=== PATIENT | female | born 1980 | race Caucasian/White ===

== ENCOUNTER 2023-07-24 21:17 | Inpatient (IN) | payer MEDICARE, MEDICAID, SELFPAY ==
[2023-07-24 21:45] VITALS: BP 121/77; PULSE 78; RESP 16; TEMP 36.8; O2SAT 98
[2023-07-24 23:35] VITALS: BMI 21.5
--- NOTE | 2023-07-25 02:12 | PC.ADMIT ---
TIFFANY IS A BIOLOGICALLY BORN MALE WHO IS TRANSITIONING TO FEMALE. SHE ARRIVED ON THE UNIT AT 2140 VIA STRETCHER. SKIN CHECK/BODY ASSESSMENT COMPLETED WITH 2 FEMALE STAFF PER HER CHOICE. TIFFANY IS 42 YEARS OLD, TRANSFEM. ADMITTED ON A CV TO [facility] FOR SAFETY, AND STABILIZATION R/T HOMELESSNESS, AND DEPRESSION WITH SI. MEDICAL DIAGNOSIS INCLUDE HTN, ASD AND CHRONIC BP. PSYCHIATRIC HISTORY INCLUDES DEPRESSION, ANXIETY, SUBSTANCE USE DISORDER, SIB, AND ANXIETY WITH MOST RECENT HOSPITALIZATION IN MAY 2023. RESPIRATORY PANEL NEGATIVE, TOX. SCREEN POSITIVE COCAINE, BENZO'S, FENTANYL, AMPHETAMINES AND SUBOXONE. SHE WAS COOPERATIVE WITH ADMISSION PROCESS, VSS, A/O X 3, GAIT STEADY, INDEPENDENT WITH ADL'S, POOR EYE CONTACT, SOFT SPOKEN, SKIN INTEGRITY INTACT EXCEPT FOR SUPERFICIAL SELF INFLICTED SCRATCHES TO LEFT WRIST, DENIES SI/HI/AVH. TIFFANY WAS ORIENTED TO UNIT/ROOM, PROVIDED SNACKS/FLUID. UNIT SAFETY OBSERVATION EVERY 15 MIN.
[2023-07-25 07:35] VITALS: BP 131/87; PULSE 72; RESP 16; TEMP 36.7; O2SAT 100
[2023-07-25 08:56] LABS: Estimated Average Glucose 74 mg/dL; Hemoglobin A1c % 4.2 % (<6.0)
[2023-07-25 09:07] LABS: Cholesterol 134 mg/dL (<200); HDL Cholesterol 36 mg/dL (>40); LDL Cholesterol Calculated 71 mg/dL (<100); Triglycerides 138 mg/dL (<150)
[2023-07-25 09:23] LABS: Free T4 (Free Thyroxine) 0.98 ng/dL (0.71-1.85); Thyroid Stimulating Hormone 1.18 uIU/mL (0.32-4.0)
[2023-07-25 09:34] LABS: Folate 11.8 ng/mL (> or = 4.0); Vitamin B12 1174 pg/mL (200-900)
[2023-07-25] MEDS: Buprenorphine/Naloxone 8/2 mg FILM 1 FILM SUBLINGUAL ×2 (11:45→14:18)
[2023-07-25] MEDS: Amphetamine Mixed Salts 10 MG TABLET 15 MG PO (14:18)
[2023-07-25] MEDS: busPIRone HCl 5 MG TABLET PO ×2 (14:18→20:50)
[2023-07-25] MEDS: FLUoxetine HCl 20 MG CAPSULE PO (14:19)
[2023-07-25] MEDS: Omeprazole 20 MG CAPSULE.DR PO (14:19)
[2023-07-25] MEDS: lisinopriL 10 MG TABLET PO (14:19)
[2023-07-25 14:20] VITALS: BP 135/95; PULSE 76; RESP 18
[2023-07-25] MEDS: Nicotine 21 MG PATCH.TD24 TRANSDERMA (15:21)
[2023-07-25] MEDS: clonazePAM 1 MG TABLET PO ×2 (15:47→20:24)
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
[2023-07-25] MEDS: hydrOXYzine HCL 25 MG TABLET PO (19:02)
[2023-07-25 19:26] VITALS: BP 141/87; PULSE 94; RESP 16; TEMP 36.5; O2SAT 98
[2023-07-25] MEDS: Benztropine Mesylate 0.5 MG TABLET PO (20:50)
[2023-07-25] MEDS: traZODone HCL 50 MG TABLET PO (20:51)
[2023-07-25] MEDS: risperiDONE 1 MG TABLET PO (20:51)
[2023-07-25] MEDS: QUEtiapine Fumarate 100 MG TABLET PO (20:51)
[2023-07-26 08:25] VITALS: BP 108/74; PULSE 81; RESP 14; TEMP 36.4; O2SAT 100
[2023-07-26 08:55] VITALS: BP 108/74
[2023-07-26] MEDS: Dextroamphetamine/Amphetamine XR 10 MG CAP.ER.24H PO (08:55)
[2023-07-26] MEDS: lisinopriL 10 MG TABLET PO (08:55)
[2023-07-26] MEDS: busPIRone HCl 5 MG TABLET PO ×3 (08:56→20:46)
[2023-07-26] MEDS: Omeprazole 20 MG CAPSULE.DR PO (08:56)
[2023-07-26] MEDS: Dextroamphetamine/Amphetamine XR 10 MG CAP.ER.24H 20 MG PO (08:56)
[2023-07-26] MEDS: risperiDONE 1 MG TABLET PO ×2 (08:57→20:46)
[2023-07-26] MEDS: FLUoxetine HCl 20 MG CAPSULE PO (08:57)
[2023-07-26] MEDS: Nicotine 21 MG PATCH.TD24 TRANSDERMA (08:57)
[2023-07-26] MEDS: Buprenorphine/Naloxone 8/2 mg FILM 1 FILM SUBLINGUAL ×2 (09:16→13:42)
[2023-07-26] MEDS: clonazePAM 1 MG TABLET PO ×3 (10:21→20:46)
[2023-07-26] MEDS: hydrOXYzine HCL 25 MG TABLET PO (12:30)
[2023-07-26] MEDS: Amphetamine Mixed Salts 10 MG TABLET 15 MG PO (13:41)
[2023-07-26 19:47] VITALS: BP 137/84; PULSE 86; RESP 16; TEMP 36.8; O2SAT 98
[2023-07-26] MEDS: traZODone HCL 50 MG TABLET PO (20:46)
[2023-07-26] MEDS: Benztropine Mesylate 0.5 MG TABLET PO (20:46)
[2023-07-26] MEDS: QUEtiapine Fumarate 100 MG TABLET PO (20:46)
--- NOTE | 2023-07-26 21:03 | HO.PSYCHPN ---
Subjective Subjective Date of Service: 07/26/23 Reason For Visit: Abraham Depressive Disorder Interim History: Patient reports she is feeling depressed and anxious. No side effects reported with her medications. Slept well. Denies SI. Review of Systems Review of Systems General: No fevers, malaise, unintentional weight loss HEENT: No blurred vision, diplopia. No sore throat, nasal congestion, rhinorrhea, sinus pain, ear pain Cardiovascular: No chest pain, palpitations, or leg edema Respiratory: No shortness of breath, wheezing, cough GI: No abdominal pain, nausea, vomiting, diarrhea, constipation, melena, hematochezia : No dysuria, hematuria, increased urinary frequency, decreased urinary output MSK: No myalgia, back pain Neuro: No headaches, weakness, paresthesias Skin: No rashes or lesions Mental Status Exam Mental Status Exam Narrative: disheveled, malkempt, poor dentition. cooperative. no PMA/PMR. speech nml rater, amount, latency. soft. thoughts linear and logical without evidence of delusions or paranoia. affect full range, normo-intense, non-labile. mood OK. a lot of anxiety. denies SI/SIBI/HI/AVH. Diagnostics Vital Signs (24Hr): Vital Signs - 24 hr 07/26/23 08:25 07/26/23 08:55 07/26/23 19:47 Temperature 97.5 F 98.2 F Pulse Rate 81 86 Respiratory Rate 14 16 Blood Pressure 108/74 108/74 137/84 Pulse Oximetry 100 98 Oxygen Delivery Method Room Air Room Air BMI result Body Mass Index 21.5 Labs Labs: Laboratory Results - last 48 hr 07/25/23 08:23 Estimat Average Glucose 74 Hemoglobin A1c % 4.2 Triglycerides 138 Cholesterol 134 LDL Cholesterol, Calc 71 HDL Cholesterol 36 L Vitamin B12 1174 H Folate 11.8 TSH 1.18 Free T4 0.98 Medications Medications Current Medications Acetaminophen (Acetaminophen 325 Mg Tablet) 650 mg PO Q6H PRN PRN Reason: Headache/Pain Mild Scale (1-3) Al Hydroxide/Mg Hydroxide (Magnesium Hydrox/Alum Hydrox 30 Ml Oral.Susp) 30 ml PO Q6H PRN PRN Reason: Heartburn/Nausea Amphetamine/Dextroamphetamine (Dextroamphetamine/Amphetamine Xr 10 Mg Cap.Er.24h) 20 mg PO DAILY [facility] Last Admin: 07/26/23 08:56 Dose: 20 mg Amphetamine/Dextroamphetamine (Dextroamphetamine/Amphetamine Xr 10 Mg Cap.Er.24h) 10 mg PO DAILY [facility] Last Admin: 07/26/23 08:55 Dose: 10 mg Amphetamine/Dextroamphetamine (Amphetamine Mixed Salts 10 Mg Tablet) 15 mg PO DAILY@1400 [facility] Last Admin: 07/26/23 13:41 Dose: 15 mg Benztropine Mesylate (Benztropine Mesylate 0.5 Mg Tablet) 0.5 mg PO BEDTIME [facility] Last Admin: 07/26/23 20:46 Dose: 0.5 mg Buprenorphine/Naloxone (Buprenorphine/Naloxone 8/2 Mg Film) 1 film SUBLINGUAL BID@0800,1400 [facility] Last Admin: 07/26/23 13:42 Dose: 1 film Buspirone HCl (Buspirone Hcl 5 Mg Tablet) 5 mg PO TID [facility] Last Admin: 07/26/23 20:46 Dose: 5 mg Clonazepam (Clonazepam 1 Mg Tablet) 1 mg PO TID PRN PRN Reason: anxiety Last Admin: 07/26/23 20:46 Dose: 1 mg Docusate Sodium (Docusate Sodium 100 Mg Capsule) 100 mg PO BID PRN PRN Reason: constipation Fluoxetine HCl (Fluoxetine Hcl 20 Mg Capsule) 20 mg PO DAILY [facility] Last Admin: 07/26/23 08:57 Dose: 20 mg Hydroxyzine HCl (Hydroxyzine Hcl 25 Mg Tablet) 25 mg PO Q6H PRN PRN Reason: Anxiety Last Admin: 07/26/23 12:30 Dose: 25 mg Lisinopril (Lisinopril 10 Mg Tablet) 10 mg PO DAILY [facility]; Protocol Last Admin: 07/26/23 08:55 Dose: 10 mg Magnesium Hydroxide (Milk Of Magnesia 30 Ml Oral.Susp) 30 ml PO DAILY PRN PRN Reason: Constipation Nicotine (Nicotine 21 Mg Patch.Td24) 21 mg TRANSDERMA DAILY [facility] Last Admin: 07/26/23 08:57 Dose: 21 mg Nicotine Polacrilex (Nicotine Polacrilex 2 Mg Gum) 4 mg BUCCAL Q2H PRN PRN Reason: Nicotine Cravings Omeprazole (Omeprazole 20 Mg Capsule.Dr) 20 mg PO DAILY@0630 [facility] Last Admin: 07/26/23 08:56 Dose: 20 mg Quetiapine Fumarate (Quetiapine Fumarate 100 Mg Tablet) 100 mg PO BEDTIME [facility] Last Admin: 07/26/23 20:46 Dose: 100 mg Risperidone (Risperidone 1 Mg Tablet) 1 mg PO BID [facility] Last Admin: 07/26/23 20:46 Dose: 1 mg Trazodone HCl (Trazodone Hcl 50 Mg Tablet) 50 mg PO BEDTIME MRX1 PRN PRN Reason: Insomnia Last Admin: 07/26/23 20:46 Dose: 50 mg Allergies Allergies Allergy/AdvReac Type Severity Reaction Status Date / Time Unable to Assess Allergy Verified 07/24/23 21:56 Assessment & Plan Assessment & Plan (1) Autism: Status: Acute Code(s): F84.0 - Autistic disorder (2) Homeless single person: Status: Acute Code(s): Z59.00 - Homelessness unspecified (3) Opioid use disorder: Status: Acute Code(s): F11.90 - Opioid use, unspecified, uncomplicated (4) Cocaine use disorder: Status: Acute Code(s): F14.10 - Cocaine abuse, uncomplicated (5) Nicotine use disorder: Status: Acute Code(s): F17.200 - Nicotine dependence, unspecified, uncomplicated (6) Chronic post-traumatic stress disorder (PTSD): Status: Acute Code(s): F43.12 - Post-traumatic stress disorder, chronic Plan meds verified with pharmacy. continue previous medications regimen. stabilize inpatient, detox from cocaine, refer to outpt treaters for aftercare and support with housing and SSDI. 07/25: continue current management and treatment plan. Reason for continued inpatient stay Substantial Risk for: harm to self and rapid decompensation Time Spent With Patient Time: Total time managing care of this patient today ____ minutes.
[2023-07-27 08:10] VITALS: BP 125/91; PULSE 93; RESP 16; TEMP 36.7; O2SAT 97
[2023-07-27] MEDS: Nicotine 21 MG PATCH.TD24 TRANSDERMA (08:51)
[2023-07-27] MEDS: Omeprazole 20 MG CAPSULE.DR PO (08:52)
[2023-07-27 08:53] VITALS: BP 125/91
[2023-07-27] MEDS: lisinopriL 10 MG TABLET PO (08:53)
[2023-07-27] MEDS: FLUoxetine HCl 20 MG CAPSULE PO (08:53)
[2023-07-27] MEDS: Dextroamphetamine/Amphetamine XR 10 MG CAP.ER.24H 20 MG PO (08:53)
[2023-07-27] MEDS: busPIRone HCl 5 MG TABLET PO ×3 (08:55→20:21)
[2023-07-27] MEDS: Dextroamphetamine/Amphetamine XR 10 MG CAP.ER.24H PO (08:57)
[2023-07-27] MEDS: Buprenorphine/Naloxone 8/2 mg FILM 1 FILM SUBLINGUAL ×2 (08:58→14:04)
[2023-07-27] MEDS: risperiDONE 1 MG TABLET PO ×2 (09:09→20:21)
[2023-07-27] MEDS: clonazePAM 1 MG TABLET PO ×3 (09:14→18:28)
--- NOTE | 2023-07-27 09:24 | P.PNPSI_ITS ---
Subjective Subjective Date of Service: 07/27/23 Reason For Visit: Abraham Depressive Disorder Interim History: Patient reports she is feeling a little better. No side effects reported with her medications. Slept well. Denies SI. Review of Systems Review of Systems General: No fevers, malaise, unintentional weight loss HEENT: No blurred vision, diplopia. No sore throat, nasal congestion, rhinorrhea, sinus pain, ear pain Cardiovascular: No chest pain, palpitations, or leg edema Respiratory: No shortness of breath, wheezing, cough GI: No abdominal pain, nausea, vomiting, diarrhea, constipation, melena, hematochezia : No dysuria, hematuria, increased urinary frequency, decreased urinary output MSK: No myalgia, back pain Neuro: No headaches, weakness, paresthesias Skin: No rashes or lesions Mental Status Exam Mental Status Exam Narrative: disheveled, malkempt, poor dentition. cooperative. no PMA/PMR. speech nml rater, amount, latency. soft. thoughts linear and logical without evidence of delusions or paranoia. affect full range, normo-intense, non-labile. mood OK. a lot of anxiety. denies SI/SIBI/HI/AVH. Diagnostics Vital Signs (24Hr): Vital Signs - 24 hr 07/26/23 19:47 07/27/23 08:10 07/27/23 08:53 Temperature 98.2 F 98.0 F Pulse Rate 86 93 Respiratory Rate 16 16 Blood Pressure 137/84 125/91 H 125/91 H Pulse Oximetry 98 97 Oxygen Delivery Method Room Air Room Air BMI result Body Mass Index 21.5 Labs Labs: Laboratory Results - last 48 hr 07/25/23 08:23 Vitamin B12 1174 H Folate 11.8 TSH 1.18 Free T4 0.98 Medications Medications Current Medications Acetaminophen (Acetaminophen 325 Mg Tablet) 650 mg PO Q6H PRN PRN Reason: Headache/Pain Mild Scale (1-3) Al Hydroxide/Mg Hydroxide (Magnesium Hydrox/Alum Hydrox 30 Ml Oral.Susp) 30 ml PO Q6H PRN PRN Reason: Heartburn/Nausea Amphetamine/Dextroamphetamine (Amphetamine Mixed Salts 10 Mg Tablet) 15 mg PO DAILY@1400 [facility] Last Admin: 07/26/23 13:41 Dose: 15 mg Amphetamine/Dextroamphetamine (Dextroamphetamine/Amphetamine Xr 10 Mg Cap.Er.24h) 30 mg PO DAILY [facility] Last Admin: 07/27/23 09:11 Dose: Not Given Benztropine Mesylate (Benztropine Mesylate 0.5 Mg Tablet) 0.5 mg PO BEDTIME [facility] Last Admin: 07/26/23 20:46 Dose: 0.5 mg Buprenorphine/Naloxone (Buprenorphine/Naloxone 8/2 Mg Film) 1 film SUBLINGUAL BID@0800,1400 [facility] Last Admin: 07/27/23 08:58 Dose: 1 film Buspirone HCl (Buspirone Hcl 5 Mg Tablet) 5 mg PO TID [facility] Last Admin: 07/27/23 08:55 Dose: 5 mg Clonazepam (Clonazepam 1 Mg Tablet) 1 mg PO TID PRN PRN Reason: anxiety Last Admin: 07/27/23 09:14 Dose: 1 mg Docusate Sodium (Docusate Sodium 100 Mg Capsule) 100 mg PO BID PRN PRN Reason: constipation Fluoxetine HCl (Fluoxetine Hcl 20 Mg Capsule) 20 mg PO DAILY [facility] Last Admin: 07/27/23 08:53 Dose: 20 mg Hydroxyzine HCl (Hydroxyzine Hcl 25 Mg Tablet) 25 mg PO Q6H PRN PRN Reason: Anxiety Last Admin: 07/26/23 12:30 Dose: 25 mg Lisinopril (Lisinopril 10 Mg Tablet) 10 mg PO DAILY [facility]; Protocol Last Admin: 07/27/23 08:53 Dose: 10 mg Magnesium Hydroxide (Milk Of Magnesia 30 Ml Oral.Susp) 30 ml PO DAILY PRN PRN Reason: Constipation Nicotine (Nicotine 21 Mg Patch.Td24) 21 mg TRANSDERMA DAILY [facility] Last Admin: 07/27/23 08:51 Dose: 21 mg Nicotine Polacrilex (Nicotine Polacrilex 2 Mg Gum) 4 mg BUCCAL Q2H PRN PRN Reason: Nicotine Cravings Omeprazole (Omeprazole 20 Mg Capsule.Dr) 20 mg PO DAILY@0630 [facility] Last Admin: 07/27/23 08:52 Dose: 20 mg Quetiapine Fumarate (Quetiapine Fumarate 100 Mg Tablet) 100 mg PO BEDTIME [facility] Last Admin: 07/26/23 20:46 Dose: 100 mg Risperidone (Risperidone 1 Mg Tablet) 1 mg PO BID [facility] Last Admin: 07/27/23 09:09 Dose: 1 mg Trazodone HCl (Trazodone Hcl 50 Mg Tablet) 50 mg PO BEDTIME MRX1 PRN PRN Reason: Insomnia Last Admin: 07/26/23 20:46 Dose: 50 mg Allergies Allergies Allergy/AdvReac Type Severity Reaction Status Date / Time Unable to Assess Allergy Verified 07/24/23 21:56 Assessment & Plan Assessment & Plan (1) Autism: Status: Acute Code(s): F84.0 - Autistic disorder (2) Homeless single person: Status: Acute Code(s): Z59.00 - Homelessness unspecified (3) Opioid use disorder: Status: Acute Code(s): F11.90 - Opioid use, unspecified, uncomplicated (4) Cocaine use disorder: Status: Acute Code(s): F14.10 - Cocaine abuse, uncomplicated (5) Nicotine use disorder: Status: Acute Code(s): F17.200 - Nicotine dependence, unspecified, uncomplicated (6) Chronic post-traumatic stress disorder (PTSD): Status: Acute Code(s): F43.12 - Post-traumatic stress disorder, chronic Plan meds verified with pharmacy. continue previous medications regimen. stabilize inpatient, detox from cocaine, refer to outpt treaters for aftercare and support with housing and SSDI. 07/25: continue current management and treatment plan. 07/26: continue current management and treatment plan. Reason for continued inpatient stay Substantial Risk for: harm to self and rapid decompensation Time Spent With Patient Time: Total time managing care of this patient today ____ minutes.
[2023-07-27] MEDS: Amphetamine Mixed Salts 10 MG TABLET 15 MG PO (14:03)
[2023-07-27] MEDS: hydrOXYzine HCL 25 MG TABLET PO (17:08)
[2023-07-27 20:15] VITALS: BP 129/84; PULSE 91; RESP 16; TEMP 36.8; O2SAT 98
[2023-07-27] MEDS: QUEtiapine Fumarate 100 MG TABLET PO (20:21)
[2023-07-27] MEDS: Benztropine Mesylate 0.5 MG TABLET PO (20:21)
[2023-07-28 07:53] VITALS: BP 117/79; PULSE 84; RESP 16; TEMP 36.8; O2SAT 98
[2023-07-28 08:12] VITALS: BP 117/79
[2023-07-28] MEDS: FLUoxetine HCl 20 MG CAPSULE PO (08:12)
[2023-07-28] MEDS: lisinopriL 10 MG TABLET PO (08:12)
[2023-07-28] MEDS: Buprenorphine/Naloxone 8/2 mg FILM 1 FILM SUBLINGUAL ×2 (08:13→14:09)
[2023-07-28] MEDS: Nicotine 21 MG PATCH.TD24 TRANSDERMA (08:13)
[2023-07-28] MEDS: busPIRone HCl 5 MG TABLET PO ×3 (08:13→20:42)
[2023-07-28] MEDS: Dextroamphetamine/Amphetamine XR 10 MG CAP.ER.24H 30 MG PO (08:13)
[2023-07-28] MEDS: Omeprazole 20 MG CAPSULE.DR PO (08:13)
[2023-07-28] MEDS: risperiDONE 1 MG TABLET PO ×2 (08:31→20:41)
[2023-07-28] MEDS: clonazePAM 1 MG TABLET PO ×3 (09:53→20:41)
[2023-07-28] MEDS: hydrOXYzine HCL 25 MG TABLET PO (12:34)
[2023-07-28] MEDS: Amphetamine Mixed Salts 10 MG TABLET 15 MG PO (14:08)
--- NOTE | 2023-07-28 16:45 | P.PNPSI_ITS ---
Subjective Subjective Date of Service: 07/28/23 Reason For Visit: Abraham Depressive Disorder Interim History: calm, cooperative, pleasant. expressing interest in [facility] programs, encouraged to speak with [facility]. agrees to increase prozac to 40 mg daily. per staff, attending groups. safe, here, not if discharged. no issues over w/e. Mental Status Exam Mental Status Exam Narrative: disheveled, malkempt, poor dentition. cooperative. no PMA/PMR. speech nml rate, amount, latency. soft. thoughts linear and logical without evidence of delusions or paranoia. affect full range, normo-intense, non-labile. mood OK. endorses SI/SIBI that comes and goes, MRE 2 days ago. denies HI/AVH. Diagnostics Vital Signs (24Hr): Vital Signs - 24 hr 07/27/23 20:15 07/28/23 07:53 07/28/23 08:12 Temperature 98.2 F 98.2 F Pulse Rate 91 84 Respiratory Rate 16 16 Blood Pressure 129/84 117/79 117/79 Pulse Oximetry 98 98 Oxygen Delivery Method Room Air Room Air BMI result Body Mass Index 21.5 Medications Medications Current Medications Acetaminophen (Acetaminophen 325 Mg Tablet) 650 mg PO Q6H PRN PRN Reason: Headache/Pain Mild Scale (1-3) Al Hydroxide/Mg Hydroxide (Magnesium Hydrox/Alum Hydrox 30 Ml Oral.Susp) 30 ml PO Q6H PRN PRN Reason: Heartburn/Nausea Amphetamine/Dextroamphetamine (Amphetamine Mixed Salts 10 Mg Tablet) 15 mg PO DAILY@1400 [facility] Last Admin: 07/28/23 14:08 Dose: 15 mg Amphetamine/Dextroamphetamine (Dextroamphetamine/Amphetamine Xr 10 Mg Cap.Er.24h) 30 mg PO DAILY [facility] Last Admin: 07/28/23 08:13 Dose: 30 mg Benztropine Mesylate (Benztropine Mesylate 0.5 Mg Tablet) 0.5 mg PO BEDTIME [facility] Last Admin: 07/27/23 20:21 Dose: 0.5 mg Buprenorphine/Naloxone (Buprenorphine/Naloxone 8/2 Mg Film) 1 film SUBLINGUAL BID@0800,1400 [facility] Last Admin: 07/28/23 14:09 Dose: 1 film Buspirone HCl (Buspirone Hcl 5 Mg Tablet) 5 mg PO TID [facility] Last Admin: 07/28/23 15:08 Dose: 5 mg Clonazepam (Clonazepam 1 Mg Tablet) 1 mg PO TID PRN PRN Reason: anxiety Last Admin: 07/28/23 15:03 Dose: 1 mg Docusate Sodium (Docusate Sodium 100 Mg Capsule) 100 mg PO BID PRN PRN Reason: constipation Fluoxetine HCl (Fluoxetine Hcl 20 Mg Capsule) 40 mg PO DAILY [facility] Hydroxyzine HCl (Hydroxyzine Hcl 25 Mg Tablet) 25 mg PO Q6H PRN PRN Reason: Anxiety Last Admin: 07/28/23 12:34 Dose: 25 mg Lisinopril (Lisinopril 10 Mg Tablet) 10 mg PO DAILY [facility]; Protocol Last Admin: 07/28/23 08:12 Dose: 10 mg Magnesium Hydroxide (Milk Of Magnesia 30 Ml Oral.Susp) 30 ml PO DAILY PRN PRN Reason: Constipation Nicotine (Nicotine 21 Mg Patch.Td24) 21 mg TRANSDERMA DAILY [facility] Last Admin: 07/28/23 08:13 Dose: 21 mg Nicotine Polacrilex (Nicotine Polacrilex 2 Mg Gum) 4 mg BUCCAL Q2H PRN PRN Reason: Nicotine Cravings Omeprazole (Omeprazole 20 Mg Capsule.Dr) 20 mg PO DAILY@0630 [facility] Last Admin: 07/28/23 08:13 Dose: 20 mg Quetiapine Fumarate (Quetiapine Fumarate 100 Mg Tablet) 100 mg PO BEDTIME [facility] Last Admin: 07/27/23 20:21 Dose: 100 mg Risperidone (Risperidone 1 Mg Tablet) 1 mg PO BID [facility] Last Admin: 07/28/23 08:31 Dose: 1 mg Trazodone HCl (Trazodone Hcl 50 Mg Tablet) 50 mg PO BEDTIME MRX1 PRN PRN Reason: Insomnia Last Admin: 07/26/23 20:46 Dose: 50 mg Allergies Allergies Allergy/AdvReac Type Severity Reaction Status Date / Time Unable to Assess Allergy Verified 07/24/23 21:56 Assessment & Plan Assessment & Plan (1) Autism: Status: Acute Code(s): F84.0 - Autistic disorder (2) Homeless single person: Status: Acute Code(s): Z59.00 - Homelessness unspecified (3) Opioid use disorder: Status: Acute Code(s): F11.90 - Opioid use, unspecified, uncomplicated (4) Cocaine use disorder: Status: Acute Code(s): F14.10 - Cocaine abuse, uncomplicated (5) Nicotine use disorder: Status: Acute Code(s): F17.200 - Nicotine dependence, unspecified, uncomplicated (6) Chronic post-traumatic stress disorder (PTSD): Status: Acute Code(s): F43.12 - Post-traumatic stress disorder, chronic Plan meds verified with pharmacy. continue previous medications regimen. stabilize inpatient, detox from cocaine, refer to outpt treaters for aftercare and support with housing and SSDI. 07/25: continue current management and treatment plan. 07/26: continue current management and treatment plan. 07/27: continue current mgmt. planning to discharge to [facility] in fall presently, versus [facility]. Reason for continued inpatient stay Substantial Risk for: inability to function and rapid decompensation Time Spent With Patient Time: Total time managing care of this patient today _25__ minutes.
[2023-07-28 20:30] VITALS: BP 126/82; PULSE 100; RESP 16; TEMP 36.9; O2SAT 98
[2023-07-28] MEDS: Benztropine Mesylate 0.5 MG TABLET PO (20:41)
[2023-07-28] MEDS: QUEtiapine Fumarate 100 MG TABLET PO (20:41)
[2023-07-29 08:00] VITALS: BP 134/86; PULSE 88; RESP 18; TEMP 36.4; O2SAT 100
[2023-07-29] MEDS: FLUoxetine HCl 20 MG CAPSULE 40 MG PO (08:11)
[2023-07-29] MEDS: Omeprazole 20 MG CAPSULE.DR PO (08:11)
[2023-07-29] MEDS: risperiDONE 1 MG TABLET PO ×2 (08:12→20:10)
[2023-07-29 08:13] VITALS: BP 134/86
[2023-07-29] MEDS: busPIRone HCl 5 MG TABLET PO ×3 (08:13→20:10)
[2023-07-29] MEDS: lisinopriL 10 MG TABLET PO (08:13)
[2023-07-29] MEDS: Dextroamphetamine/Amphetamine XR 10 MG CAP.ER.24H 30 MG PO (08:14)
[2023-07-29] MEDS: Nicotine 21 MG PATCH.TD24 TRANSDERMA (08:15)
[2023-07-29] MEDS: Buprenorphine/Naloxone 8/2 mg FILM 1 FILM SUBLINGUAL ×2 (08:16→14:04)
[2023-07-29] MEDS: clonazePAM 1 MG TABLET PO ×3 (09:14→19:44)
[2023-07-29] MEDS: Amphetamine Mixed Salts 10 MG TABLET 15 MG PO (13:30)
--- NOTE | 2023-07-29 15:47 | HO.PSYCHPN ---
Subjective Subjective Date of Service: 07/29/23 Reason For Visit: Abraham Depressive Disorder Interim History: calm, cooperative. planning for DC late in the week back to [place]. pt nonplussed regarding not being accepted to rehab due to insurance issues, says she feels her primary need in the near-term is to return to [place] and get her income situation sorted out. states meds are agreeing well with her, no complaints or requests. per staff, dep/anx 7. affect blunted. taking klonopin and atarax. social with roommate. slept about8 hours. Mental Status Exam Mental Status Exam Narrative: disheveled, malkempt, poor dentition. cooperative. no PMA/PMR. speech nml rate, amount, latency. soft. thoughts linear and logical without evidence of delusions or paranoia. affect full range, normo-intense, non-labile. mood OK. no SI/SIBI/HI/AVH expressed. Diagnostics Vital Signs (24Hr): Vital Signs - 24 hr 07/28/23 20:30 07/29/23 08:00 07/29/23 08:13 Temperature 98.5 F 97.6 F Pulse Rate 100 88 Respiratory Rate 16 18 Blood Pressure 126/82 134/86 134/86 Pulse Oximetry 98 100 Oxygen Delivery Method Room Air Room Air BMI result Body Mass Index 21.5 Medications Medications Current Medications Acetaminophen (Acetaminophen 325 Mg Tablet) 650 mg PO Q6H PRN PRN Reason: Headache/Pain Mild Scale (1-3) Al Hydroxide/Mg Hydroxide (Magnesium Hydrox/Alum Hydrox 30 Ml Oral.Susp) 30 ml PO Q6H PRN PRN Reason: Heartburn/Nausea Amphetamine/Dextroamphetamine (Amphetamine Mixed Salts 10 Mg Tablet) 15 mg PO DAILY@1400 [facility] Last Admin: 07/29/23 13:30 Dose: 15 mg Amphetamine/Dextroamphetamine (Dextroamphetamine/Amphetamine Xr 10 Mg Cap.Er.24h) 30 mg PO DAILY [facility] Last Admin: 07/29/23 08:14 Dose: 30 mg Benztropine Mesylate (Benztropine Mesylate 0.5 Mg Tablet) 0.5 mg PO BEDTIME [facility] Last Admin: 07/28/23 20:41 Dose: 0.5 mg Buprenorphine/Naloxone (Buprenorphine/Naloxone 8/2 Mg Film) 1 film SUBLINGUAL BID@0800,1400 [facility] Last Admin: 07/29/23 14:04 Dose: 1 film Buspirone HCl (Buspirone Hcl 5 Mg Tablet) 5 mg PO TID [facility] Last Admin: 07/29/23 08:13 Dose: 5 mg Clonazepam (Clonazepam 1 Mg Tablet) 1 mg PO TID PRN PRN Reason: anxiety Last Admin: 07/29/23 13:29 Dose: 1 mg Docusate Sodium (Docusate Sodium 100 Mg Capsule) 100 mg PO BID PRN PRN Reason: constipation Fluoxetine HCl (Fluoxetine Hcl 20 Mg Capsule) 40 mg PO DAILY [facility] Last Admin: 07/29/23 08:11 Dose: 40 mg Hydroxyzine HCl (Hydroxyzine Hcl 25 Mg Tablet) 25 mg PO Q6H PRN PRN Reason: Anxiety Last Admin: 07/28/23 12:34 Dose: 25 mg Lisinopril (Lisinopril 10 Mg Tablet) 10 mg PO DAILY [facility]; Protocol Last Admin: 07/29/23 08:13 Dose: 10 mg Magnesium Hydroxide (Milk Of Magnesia 30 Ml Oral.Susp) 30 ml PO DAILY PRN PRN Reason: Constipation Nicotine (Nicotine 21 Mg Patch.Td24) 21 mg TRANSDERMA DAILY [facility] Last Admin: 07/29/23 08:15 Dose: 21 mg Nicotine Polacrilex (Nicotine Polacrilex 2 Mg Gum) 4 mg BUCCAL Q2H PRN PRN Reason: Nicotine Cravings Omeprazole (Omeprazole 20 Mg Capsule.Dr) 20 mg PO DAILY@0630 [facility] Last Admin: 07/29/23 08:11 Dose: 20 mg Quetiapine Fumarate (Quetiapine Fumarate 100 Mg Tablet) 100 mg PO BEDTIME [facility] Last Admin: 07/28/23 20:41 Dose: 100 mg Risperidone (Risperidone 1 Mg Tablet) 1 mg PO BID [facility] Last Admin: 07/29/23 08:12 Dose: 1 mg Trazodone HCl (Trazodone Hcl 50 Mg Tablet) 50 mg PO BEDTIME MRX1 PRN PRN Reason: Insomnia Last Admin: 07/26/23 20:46 Dose: 50 mg Allergies Allergies Allergy/AdvReac Type Severity Reaction Status Date / Time Unable to Assess Allergy Verified 07/24/23 21:56 Assessment & Plan Assessment & Plan (1) Autism: Status: Acute Code(s): F84.0 - Autistic disorder (2) Homeless single person: Status: Acute Code(s): Z59.00 - Homelessness unspecified (3) Opioid use disorder: Status: Acute Code(s): F11.90 - Opioid use, unspecified, uncomplicated (4) Cocaine use disorder: Status: Acute Code(s): F14.10 - Cocaine abuse, uncomplicated (5) Nicotine use disorder: Status: Acute Code(s): F17.200 - Nicotine dependence, unspecified, uncomplicated (6) Chronic post-traumatic stress disorder (PTSD): Status: Acute Code(s): F43.12 - Post-traumatic stress disorder, chronic Plan meds verified with pharmacy. continue previous medications regimen. stabilize inpatient, detox from cocaine, refer to outpt treaters for aftercare and support with housing and SSDI. 07/25: continue current management and treatment plan. 07/26: continue current management and treatment plan. 07/27: continue current mgmt. planning to discharge to [facility] in [place] presently, versus [facility]. 07/28: continue current mgmt. planning for discharge to [place] or [place]. Reason for continued inpatient stay Substantial Risk for: inability to function and rapid decompensation Time Spent With Patient Time: Total time managing care of this patient today __25__ minutes.
[2023-07-29 20:00] VITALS: BP 131/89; PULSE 103; RESP 16; TEMP 36.8; O2SAT 100
[2023-07-29] MEDS: Benztropine Mesylate 0.5 MG TABLET PO (20:10)
[2023-07-29] MEDS: QUEtiapine Fumarate 100 MG TABLET PO (20:10)
[2023-07-30 07:35] VITALS: BP 124/77; PULSE 85; RESP 14; TEMP 35.6; O2SAT 99
[2023-07-30] MEDS: Nicotine 21 MG PATCH.TD24 TRANSDERMA (08:49)
[2023-07-30] MEDS: risperiDONE 1 MG TABLET PO ×2 (08:50→20:21)
[2023-07-30] MEDS: busPIRone HCl 5 MG TABLET PO ×3 (08:50→20:21)
[2023-07-30] MEDS: Dextroamphetamine/Amphetamine XR 10 MG CAP.ER.24H 30 MG PO (08:50)
[2023-07-30] MEDS: Omeprazole 20 MG CAPSULE.DR PO (08:50)
[2023-07-30 08:51] VITALS: BP 124/77
[2023-07-30] MEDS: lisinopriL 10 MG TABLET PO (08:51)
[2023-07-30] MEDS: FLUoxetine HCl 20 MG CAPSULE 40 MG PO (08:51)
[2023-07-30] MEDS: Buprenorphine/Naloxone 8/2 mg FILM 1 FILM SUBLINGUAL ×2 (09:05→13:31)
[2023-07-30] MEDS: clonazePAM 1 MG TABLET PO ×3 (09:55→20:22)
[2023-07-30] MEDS: hydrOXYzine HCL 25 MG TABLET PO (12:52)
[2023-07-30] MEDS: Amphetamine Mixed Salts 10 MG TABLET 15 MG PO (13:30)
--- NOTE | 2023-07-30 16:22 | HO.PSYCHPN ---
Subjective Subjective Date of Service: 07/30/23 Reason For Visit: Abraham Depressive Disorder Interim History: calm, cooperative. in agreement with plan to discharge late this week to [place]. states medications are doing fine for her. no requests or complaints. per staff, increased anxiety, depression. Mental Status Exam Mental Status Exam Narrative: disheveled, malkempt, poor dentition. cooperative. no PMA/PMR. speech nml rate, amount, latency. soft. thoughts linear and logical without evidence of delusions or paranoia. affect full range, normo-intense, non-labile. mood OK. no SI/SIBI/HI/AVH expressed. Diagnostics Vital Signs (24Hr): Vital Signs - 24 hr 07/29/23 20:00 07/30/23 07:35 07/30/23 08:51 Temperature 98.3 F 96.0 F L Pulse Rate 103 H 85 Respiratory Rate 16 14 Blood Pressure 131/89 124/77 124/77 Pulse Oximetry 100 99 Oxygen Delivery Method Room Air Room Air BMI result Body Mass Index 21.5 Medications Medications Current Medications Acetaminophen (Acetaminophen 325 Mg Tablet) 650 mg PO Q6H PRN PRN Reason: Headache/Pain Mild Scale (1-3) Al Hydroxide/Mg Hydroxide (Magnesium Hydrox/Alum Hydrox 30 Ml Oral.Susp) 30 ml PO Q6H PRN PRN Reason: Heartburn/Nausea Amphetamine/Dextroamphetamine (Dextroamphetamine/Amphetamine Xr 10 Mg Cap.Er.24h) 30 mg PO DAILY [facility] Last Admin: 07/30/23 08:50 Dose: 30 mg Amphetamine/Dextroamphetamine (Amphetamine Mixed Salts 10 Mg Tablet) 15 mg PO DAILY@1300 [facility] Benztropine Mesylate (Benztropine Mesylate 0.5 Mg Tablet) 0.5 mg PO BEDTIME [facility] Last Admin: 07/29/23 20:10 Dose: 0.5 mg Buprenorphine/Naloxone (Buprenorphine/Naloxone 8/2 Mg Film) 1 film SUBLINGUAL BID@0800,1400 [facility] Last Admin: 07/30/23 13:31 Dose: 1 film Buspirone HCl (Buspirone Hcl 5 Mg Tablet) 5 mg PO TID [facility] Last Admin: 07/30/23 15:03 Dose: 5 mg Clonazepam (Clonazepam 1 Mg Tablet) 1 mg PO TID PRN PRN Reason: anxiety Last Admin: 07/30/23 15:03 Dose: 1 mg Docusate Sodium (Docusate Sodium 100 Mg Capsule) 100 mg PO BID PRN PRN Reason: constipation Fluoxetine HCl (Fluoxetine Hcl 20 Mg Capsule) 40 mg PO DAILY [facility] Last Admin: 07/30/23 08:51 Dose: 40 mg Hydroxyzine HCl (Hydroxyzine Hcl 25 Mg Tablet) 25 mg PO Q6H PRN PRN Reason: Anxiety Last Admin: 07/30/23 12:52 Dose: 25 mg Lisinopril (Lisinopril 10 Mg Tablet) 10 mg PO DAILY [facility]; Protocol Last Admin: 07/30/23 08:51 Dose: 10 mg Magnesium Hydroxide (Milk Of Magnesia 30 Ml Oral.Susp) 30 ml PO DAILY PRN PRN Reason: Constipation Nicotine (Nicotine 21 Mg Patch.Td24) 21 mg TRANSDERMA DAILY [facility] Last Admin: 07/30/23 08:49 Dose: 21 mg Nicotine Polacrilex (Nicotine Polacrilex 2 Mg Gum) 4 mg BUCCAL Q2H PRN PRN Reason: Nicotine Cravings Omeprazole (Omeprazole 20 Mg Capsule.Dr) 20 mg PO DAILY@0630 [facility] Last Admin: 07/30/23 08:50 Dose: 20 mg Quetiapine Fumarate (Quetiapine Fumarate 100 Mg Tablet) 100 mg PO BEDTIME [facility] Last Admin: 07/29/23 20:10 Dose: 100 mg Risperidone (Risperidone 1 Mg Tablet) 1 mg PO BID [facility] Last Admin: 07/30/23 08:50 Dose: 1 mg Trazodone HCl (Trazodone Hcl 50 Mg Tablet) 50 mg PO BEDTIME MRX1 PRN PRN Reason: Insomnia Last Admin: 07/26/23 20:46 Dose: 50 mg Allergies Allergies Allergy/AdvReac Type Severity Reaction Status Date / Time Unable to Assess Allergy Verified 07/24/23 21:56 Assessment & Plan Assessment & Plan (1) Autism: Status: Acute Code(s): F84.0 - Autistic disorder (2) Homeless single person: Status: Acute Code(s): Z59.00 - Homelessness unspecified (3) Opioid use disorder: Status: Acute Code(s): F11.90 - Opioid use, unspecified, uncomplicated (4) Cocaine use disorder: Status: Acute Code(s): F14.10 - Cocaine abuse, uncomplicated (5) Nicotine use disorder: Status: Acute Code(s): F17.200 - Nicotine dependence, unspecified, uncomplicated (6) Chronic post-traumatic stress disorder (PTSD): Status: Acute Code(s): F43.12 - Post-traumatic stress disorder, chronic Plan meds verified with pharmacy. continue previous medications regimen. stabilize inpatient, detox from cocaine, refer to outpt treaters for aftercare and support with housing and SSDI. 07/25: continue current management and treatment plan. 07/26: continue current management and treatment plan. 07/27: continue current mgmt. planning to [facility] to [facility] [place] presently, versus [facility]. 07/28: continue current mgmt. planning for discharge to [place] or [place]. 07/29: continue current mgmt. planning for friday discharge. Reason for continued inpatient stay Substantial Risk for: harm to self, inability to function and rapid decompensation Time Spent With Patient Time: Total time managing care of this patient today __25__ minutes.
[2023-07-30] MEDS: Benztropine Mesylate 0.5 MG TABLET PO (20:21)
[2023-07-30] MEDS: QUEtiapine Fumarate 100 MG TABLET PO (20:21)
[2023-07-30] MEDS: traZODone HCL 50 MG TABLET PO (20:22)
[2023-07-31 07:00] VITALS: BMI 22.6
[2023-07-31 08:00] VITALS: BP 119/75; PULSE 74; RESP 14; TEMP 37.3; O2SAT 98
[2023-07-31] MEDS: FLUoxetine HCl 20 MG CAPSULE 40 MG PO (08:28)
[2023-07-31] MEDS: Dextroamphetamine/Amphetamine XR 10 MG CAP.ER.24H 30 MG PO (08:28)
[2023-07-31 08:29] VITALS: BP 119/75
[2023-07-31] MEDS: Buprenorphine/Naloxone 8/2 mg FILM 1 FILM SUBLINGUAL ×2 (08:29→13:55)
[2023-07-31] MEDS: risperiDONE 1 MG TABLET PO ×2 (08:29→20:57)
[2023-07-31] MEDS: busPIRone HCl 5 MG TABLET PO ×3 (08:29→20:57)
[2023-07-31] MEDS: Omeprazole 20 MG CAPSULE.DR PO (08:29)
[2023-07-31] MEDS: Nicotine 21 MG PATCH.TD24 TRANSDERMA (08:29)
[2023-07-31] MEDS: lisinopriL 10 MG TABLET PO (08:29)
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
[2023-07-31] MEDS: Amphetamine Mixed Salts 10 MG TABLET 15 MG PO (12:32)
[2023-07-31] MEDS: clonazePAM 1 MG TABLET PO ×2 (12:32→19:33)
[2023-07-31 20:50] VITALS: BP 105/69; PULSE 96; RESP 16; TEMP 37.3; O2SAT 98
[2023-07-31] MEDS: Benztropine Mesylate 0.5 MG TABLET PO (20:57)
[2023-07-31] MEDS: QUEtiapine Fumarate 100 MG TABLET PO (20:57)
[2023-07-31] MEDS: traZODone HCL 50 MG TABLET PO (20:57)
[2023-08-01 07:37] VITALS: BP 126/78; PULSE 70; RESP 16; TEMP 36.9; O2SAT 99
[2023-08-01 08:51] VITALS: BP 126/78
[2023-08-01] MEDS: Omeprazole 20 MG CAPSULE.DR PO (08:51)
[2023-08-01] MEDS: busPIRone HCl 5 MG TABLET PO (08:51)
[2023-08-01] MEDS: lisinopriL 10 MG TABLET PO (08:51)
[2023-08-01] MEDS: Dextroamphetamine/Amphetamine XR 10 MG CAP.ER.24H 30 MG PO (08:51)
[2023-08-01] MEDS: FLUoxetine HCl 20 MG CAPSULE 40 MG PO (08:52)
[2023-08-01] MEDS: Nicotine 21 MG PATCH.TD24 TRANSDERMA (08:52)
[2023-08-01] MEDS: Buprenorphine/Naloxone 8/2 mg FILM 1 FILM SUBLINGUAL (08:52)
[2023-08-01] MEDS: risperiDONE 1 MG TABLET PO (08:52)
== END 2023-08-01 10:41 | disposition home or self-care (01) | DRG 882 ==
PROVIDERS: Admitting Provider Psychiatry & Neurology Psychiatry; Visit Provider Psychiatry & Neurology Psychiatry
DX: F43.12 Post-traumatic stress disorder, chronic (principal); R45.851 Suicidal ideations; F11.20 Opioid dependence, uncomplicated; Z59.02 Unsheltered homelessness; F84.0 Autistic disorder; F64.0 Transsexualism; D69.6 Thrombocytopenia, unspecified; F14.10 Cocaine abuse, uncomplicated; F95.2 Tourette's disorder; F17.210 Nicotine dependence, cigarettes, uncomplicated; Z71.6 Tobacco abuse counseling; F19.10 Other psychoactive substance abuse, uncomplicated; I10 Essential (primary) hypertension; K21.9 Gastro-esophageal reflux disease without esophagitis; Z79.899 Other long term (current) drug therapy
CPT/HCPCS: 36415; 80061; 82607; 82746; 83036; 84439; 84443

== ENCOUNTER → 2023-07-24 21:17 | Outpatient (BNV) | payer MEDICARE, MEDICAID, SELFPAY | PROVIDERS: Admitting Provider Psychiatry & Neurology Psychiatry; Visit Provider Physician Assistant | DX: Z02.2 Encounter for examination for admission to residential institution (principal) | CPT/HCPCS: 99429 ==

== ENCOUNTER → 2023-07-24 21:17 | Outpatient (BNV) | payer MEDICARE, MEDICAID, SELFPAY | PROVIDERS: Admitting Provider Psychiatry & Neurology Psychiatry; Visit Provider Psychiatry & Neurology Psychiatry | DX: F14.10 Cocaine abuse, uncomplicated (principal); F84.0 Autistic disorder; F11.90 Opioid use, unspecified, uncomplicated; Z59.00 Homelessness unspecified; F17.200 Nicotine dependence, unspecified, uncomplicated; F43.12 Post-traumatic stress disorder, chronic | CPT/HCPCS: 90792; 99231; 99232; 99239 ==